=== PATIENT | female | born 1995 | race Caucasian/White ===

== ENCOUNTER 2016-12-11 16:09 | Emergency (ER) | payer MEDICAID, OTHER ==
[~2016-12-11] VITALS: Ht 160 cm; Wt 55.0 kg
[2016-12-11 16:28] VITALS: BP 119/79; PULSE 88; RESP 20; TEMP 98.1; O2SAT 98
[2016-12-11 17:21] LABS: AUTOMATED NEUTROPHIL # 8.3 TH/MM3 (1.8-7.7); BASOPHIL # 0.1 TH/MM3 (0-0.2); BASOPHIL % 0.6 % (0.0-2.0); EOSINOPHIL % 0.1 % (0.0-4.0); HEMATOCRIT 35.9 % (35.0-46.0); LYMPH % 10.6 % (9.0-44.0); LYMPHOCYTE # 1.1 TH/MM3 (1.0-4.8); MEAN CELL VOLUME 68.8 FL (80.0-100.0); MEAN CORPUSCULAR HEMOGLOBIN 21.4 PG (27.0-34.0); MEAN CORPUSCULAR HGB CONC 31.2 % (32.0-36.0); MONO % 6.5 % (0.0-8.0); NEUT % 82.2 % (16.0-70.0); PLATELET COUNT 235 TH/MM3 (150-450); RED BLOOD COUNT 5.23 MIL/MM3 (4.00-5.30); RED CELL DISTRIBUTION WIDTH 19.5 % (11.6-17.2); WHITE BLOOD COUNT 10.1 TH/MM3 (4.0-11.0)
[2016-12-11 17:22] LABS: HEMO FLAGS AUTO DIFF
[2016-12-11 17:31] LABS: ANION GAP 7 MEQ/L (5-15)
[2016-12-11 17:34] LABS: ALKALINE PHOSPHATASE 91 U/L (45-117); ALT (GPT) 25 U/L (9-42); AST (GOT) 19 U/L (16-38); BICARBONATE 24.8 MEQ/L (21.0-32.0); BLOOD UREA NITROGEN 7 MG/DL (7-18); CHLORIDE 106 MEQ/L (98-107); GLOMERULAR FILTRATION RATE 102 ML/MIN (>89); POTASSIUM 3.3 MEQ/L (3.5-5.1); SODIUM (NA) 138 MEQ/L (136-145); TOTAL BILIRUBIN ADULT 0.7 MG/DL (0.2-1.0)
--- NOTE | 2016-12-11 17:45 | PD ---
HPI Chief Complaint: Psychiatric Symptoms Time Seen by Provider: 17:42 Travel History International Travel<30 days: No Contact w/Intl Traveler<30days: No Traveled to known affect area: No History of Present Illness HPI 21-year-old female that presents to the ED for evaluation of Keene act. Patient was Keene acted by police after apparently she's been behaving more bizarre and being aggressive towards family member. She denies any drug abuse. She denies taking any medications of any kind. History is somewhat limited as patient does appear to have some sort of mental disability and she only answers yes or no questions. She appears to be acting more like a child and her normal age. There is no family member at bedside or anybody to give us any more history other than what the Keene act provided. She denies any cuts on herself. No chest pain or shortness of breath. No other medical problems. She denies any suicidal or homicidal ideation. History again is somewhat limited secondary to above PFSH Social History Alcohol Use: No Tobacco Use: No Substance Use: No Review of Systems ROS Limitations: Poor Historian Except as stated in HPI: all other systems reviewed are Neg Physical Exam Exam Limitations: Poor Historian Narrative GENERAL: SKIN: Warm and dry. HEAD: Atraumatic. Normocephalic. EYES: Pupils equal and round. No scleral icterus. No injection or drainage. ENT: No nasal bleeding or discharge. Mucous membranes pink and moist. Tongue is midline. No uvula deviation. NECK: Trachea midline. No JVD. CARDIOVASCULAR: Regular rate and rhythm. No murmurs, S3, S4. RESPIRATORY: No accessory muscle use. Clear to auscultation. Breath sounds equal bilaterally. GASTROINTESTINAL: Abdomen soft, non-tender, nondistended. Hepatic and splenic margins not palpable. MUSCULOSKELETAL: Extremities without clubbing, cyanosis, or edema. No obvious deformities. Full range of motion of the upper and lower extremities bilaterally. 2+ pulses bilaterally. NEUROLOGICAL: Awake and alert. No obvious cranial nerve deficits. Motor grossly within normal limits. Five out of 5 muscle strength in the arms and legs. Normal speech. PSYCHIATRIC: Anxious mood and affect; insight and judgment cannot assess Data Data Last Documented VS Vital Signs Date Time Temp Pulse Resp B/P Pulse Ox O2 Delivery O2 Flow Rate FiO2 12/11/16 16:28 98.1 88 20 119/79 98 Orders Complete Blood Count With Diff (12/11/16 16:19) Comprehensive Metabolic Panel (12/11/16 16:19) Ed Urine Pregnancytest Poc (12/11/16 16:19) Psych Screen (12/11/16 16:19) Drug Screen, Random Urine (12/11/16 16:19) Alcohol (Ethanol) (12/11/16 16:19) ^ Sitter (12/11/16 16:25) Diet Regular Basic (12/11/16 Dinner) Labs Laboratory Tests Test 12/11/16 12/11/16 16:44 18:00 White Blood Count 10.1 TH/MM3 Red Blood Count 5.23 MIL/MM3 Hemoglobin 11.2 GM/DL Hematocrit 35.9 % Mean Corpuscular Volume 68.8 FL Mean Corpuscular Hemoglobin 21.4 PG Mean Corpuscular Hemoglobin 31.2 % Concent Red Cell Distribution Width 19.5 % Platelet Count 235 TH/MM3 Mean Platelet Volume 11.2 FL Neutrophils (%) (Auto) 82.2 % Lymphocytes (%) (Auto) 10.6 % Monocytes (%) (Auto) 6.5 % Eosinophils (%) (Auto) 0.1 % Basophils (%) (Auto) 0.6 % Neutrophils # (Auto) 8.3 TH/MM3 Lymphocytes # (Auto) 1.1 TH/MM3 Monocytes # (Auto) 0.7 TH/MM3 Eosinophils # (Auto) 0.0 TH/MM3 Basophils # (Auto) 0.1 TH/MM3 CBC Comment AUTO DIFF Differential Comment AUTO DIFF CONFIRMED Platelet Estimate NORMAL Platelet Morphology Comment ENLARGED Ovalocytes 1+ Sodium Level 138 MEQ/L Potassium Level 3.3 MEQ/L Chloride Level 106 MEQ/L Carbon Dioxide Level 24.8 MEQ/L Anion Gap 7 MEQ/L Blood Urea Nitrogen 7 MG/DL Creatinine 0.73 MG/DL Estimat Glomerular Filtration 102 ML/MIN Rate Random Glucose 98 MG/DL Calcium Level 9.8 MG/DL Total Bilirubin 0.7 MG/DL Aspartate Amino Transf 19 U/L (AST/SGOT) Alanine Aminotransferase 25 U/L (ALT/SGPT) Alkaline Phosphatase 91 U/L Total Protein 7.8 GM/DL Albumin 4.3 GM/DL Ethyl Alcohol Level LESS THAN 3 MG/DL Urine Opiates Screen NEG Urine Barbiturates Screen NEG Urine Amphetamines Screen NEG Urine Benzodiazepines Screen NEG Urine Cocaine Screen NEG Urine Cannabinoids Screen NEG [facility] Medical Decision Making Medical Screen Exam Complete: Yes Emergency Medical Condition: Yes Medical Record Reviewed: Yes Interpretation(s) CBC & BMP Diagram 12/11/16 16:44 tox negative Differential Diagnosis Depression versus suicidal ideation versus anxiety versus adjustment disorder versus mood disorder versus bipolar disorder versus schizophrenia versus paranoid disorder versus psychosis versus substance abuse versus alcohol abuse versus alcohol induced psychosis versus homicidality addition versus cutting versus personality disorder Narrative Course 21-year-old female that presents to the ED for evaluation of psych. Patient was properly examined and was found to have signs and symptoms consistent appears to be psych. No sign of acute medical distress. History is somewhat limited because of patient's possible learning disability. At this time recommendations for labs. Patient will be medically clear. Okay to be seen by psych. Mental health screening was discussed with the patient. Diagnosis Primary Impression: Mood disorder Jason Meyers Dec 11, 2016 17:45
[2016-12-11 17:46] LABS: OVALOCYTES 1+ (NORMAL); PLATELET ESTIMATE SMEAR NORMAL (NORMAL); PLATELET MORPHOLOGY ENLARGED (NORMAL); SCAN/DIFF AUTO DIFF CONFIRMED
[2016-12-11 18:19] LABS: AMPHETAMINE, URINE NEG (NEG); BARBITURATES, URINE NEG (NEG); COCAINE, URINE NEG (NEG)
[2016-12-11 18:33] VITALS: BP 113/63; PULSE 84; RESP 16; TEMP 97.2; O2SAT 100
--- NOTE | 2016-12-11 19:54 | PD ---
History of Present Illness Chief Complaint: Psychiatric Symptoms Time Seen by Provider: 19:20 Travel History International Travel<30 Days: No Contact w/Intl Traveler<30days: No Known affected area: No Legal Status Legal Status: [place] Act Keene Act Signed By: Blair Keene Act Comment: Christopher HULL (OFFICER) History of Present Illness: History of Present Illness HPI 21-year-old female with no previous psychiatric treatment that presents to the ED under a BA initiated by TAYLOR. The police were called to the home after the patient and her mother were observed arguing and the mother reported that she has been more aggressive than usual. This patient has no previous contact with [facility] . The patient is seen in J pod. She is dressed casually. She appears younger than her stated age. Her behavior is childlike. She is crying uncontrollably and asking to have her mother present during the interview. Mother is called.The mother provides most of the clinical information and history. 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 She completed high school. Mother reports that for the past 2 months the patient has been more argumentative and wanting to move out of the house. She does not work therefore this is not a possibility. Mother also reports that she spends the whole day walking and walks approximately 10 miles per day. She engages in behaviors such as not throwing away cardboard boxes ( 3 total) and becoming upset if the mother changes the location of her belongings. She sleeps well. No reports of any other behavior. Patient answers only minimal questions with no elaboration on her responses.She denies any hallucinations, no delusions and no paranoia. She denies having any intrusive or racing thoughts. Denies feeling sad . Denies suicidal or homicidal ideation. PFSH Past Medical History Diminished Hearing: No Medical other: Yes (INTELLECTUAL DISABILITY) Tetanus Vaccination: Unknown Influenza Vaccination: No ?: Not Past Surgical History Surgical History: No Previous Surgery Psychiatric History Psychiatric History Hx Psychiatric Treatment: NONE PER MOTHER History of Inpatient Treatment: No Guns or firearms in home: No Social History Single female. Lives with her mother and father. Completed 12th grade . Unemployed Hx Alcohol Use: No Hx Tobacco Use: No Hx Substance Use: No Hx of Substance Use Treatment: No Family Psychiatric History None reported by mother Allergies-Medications (Allergen,Severity, Reaction): Coded Allergies: Penicillin (Verified Allergy, Unknown, 12/11/16) Review of Systems Except as stated in HPI: all other systems reviewed are Neg Psychiatric: DENIES: Anxiety, Confusion, Mood changes, Depression, Hallucinations, Agitation, Suicidal Ideation, Homicidal Ideation, Delusions Exam Alert: Yes Allen: Person (ox4) Affect: Other (childlike) Speech: Clear (MInimal . Defers to mother . ) Eye Contact: Indirect Memory Intact: Comment (not tetsed) Hallucinations: Other (denies ) Suicidal: Ideation (denies any) Homicidal: Ideation (denies any) Insight/Judgement poor. not impaired. MDM Medical Decision Making Medical Record Reviewed: Yes Assessment/Plan 21 year old female with intellectual disability who appears younger than stated age and acts in a very childlike manner. Mother present during the interview and provides much of the information. She reports increase in arguing , leaving the house and walking all day,and wanting to move out of the house. Mother feels that she is not ready for such and patient realistically may not be able to live independently. The mother would like referrals for counseling . Patient does not meet BA criteria and most likely will not benefit from inpatient psychiatric treatment. It is recommended that she follow up with outpatient treatment I have provided psychoeducation. Lift BA. Orders Complete Blood Count With Diff (12/11/16 16:19) Comprehensive Metabolic Panel (12/11/16 16:19) Ed Urine Pregnancytest Poc (12/11/16 16:19) Psych Screen (12/11/16 16:19) Drug Screen, Random Urine (12/11/16 16:19) Alcohol (Ethanol) (12/11/16 16:19) ^ Sitter (12/11/16 16:25) Diet Regular Basic (12/11/16 Dinner) Results Vital Signs Date Time Temp Pulse Resp B/P Pulse Ox O2 Delivery O2 Flow Rate FiO2 12/11/16 18:33 97.2 84 16 113/63 100 12/11/16 16:28 98.1 88 20 119/79 98 Laboratory Tests Test 12/11/16 12/11/16 16:44 18:00 White Blood Count 10.1 Red Blood Count 5.23 Hemoglobin 11.2 Hematocrit 35.9 Mean Corpuscular Volume 68.8 Mean Corpuscular Hemoglobin 21.4 Mean Corpuscular Hemoglobin 31.2 Concent Red Cell Distribution Width 19.5 Platelet Count 235 Mean Platelet Volume 11.2 Neutrophils (%) (Auto) 82.2 Lymphocytes (%) (Auto) 10.6 Monocytes (%) (Auto) 6.5 Eosinophils (%) (Auto) 0.1 Basophils (%) (Auto) 0.6 Neutrophils # (Auto) 8.3 Lymphocytes # (Auto) 1.1 Monocytes # (Auto) 0.7 Eosinophils # (Auto) 0.0 Basophils # (Auto) 0.1 CBC Comment AUTO DIFF Differential Comment AUTO DIFF CONFIRMED Platelet Estimate NORMAL Platelet Morphology Comment ENLARGED Ovalocytes 1+ Sodium Level 138 Potassium Level 3.3 Chloride Level 106 Carbon Dioxide Level 24.8 Anion Gap 7 Blood Urea Nitrogen 7 Creatinine 0.73 Estimat Glomerular Filtration 102 Rate Random Glucose 98 Calcium Level 9.8 Total Bilirubin 0.7 Aspartate Amino Transf 19 (AST/SGOT) Alanine Aminotransferase 25 (ALT/SGPT) Alkaline Phosphatase 91 Total Protein 7.8 Albumin 4.3 Ethyl Alcohol Level LESS THAN 3 Urine Opiates Screen NEG Urine Barbiturates Screen NEG Urine Amphetamines Screen NEG Urine Benzodiazepines Screen NEG Urine Cocaine Screen NEG Urine Cannabinoids Screen NEG Diagnosis Primary Impression: Mood disorder Additional Impression: adjustmetn disorder Psychiatrically Cleared: Yes Referrals: [facility] (Out patient) as needed Departure Forms: Tests/Procedures Patient Instructions: General Instructions, Mood Disorders (ED) Additional Instructions: PLEASE RETURN TO EMERGENCY DEPARTMENT IF SYMPTOMS WORSEN Disposition: 01 DISCHARGE HOME Condition: Stable Problem Qualifiers Annamarie Willams Dec 11, 2016 19:54
== END 2016-12-11 19:54 | disposition home or self-care (01) ==
LOC: NEPJ 16:09
DX: F39 Unspecified mood [affective] disorder (principal)
CPT/HCPCS: 80053; 80307; 84703; 85025; 99282